=== PATIENT | female | born 1950 | race Caucasian/White ===

== ENCOUNTER → 2017-07-21 | Outpatient (CLI) | payer BC ==
--- NOTE | 2017-07-21 15:37 | XR ---
EXAMINATION TYPE: XR foot complete LT DATE OF EXAM: 07/21/2017 COMPARISON: NONE HISTORY: Left foot pain, fall down stairs TECHNIQUE: 3 views left foot FINDINGS: No acute fractures are evident. There is joint space narrowing. Plantar and Achilles tendon calcaneal heel spurs are present. Follow-up study can be performed 7-10 days from acute trauma for continued pain. IMPRESSION: 1. No acute osseous abnormality.
== END ==
LOC: RADXRMAIN 15:15
PROVIDERS: ATTEND Family Medicine
DX: M79.672 Pain in left foot (principal)

== ENCOUNTER → 2018-11-02 | Outpatient (CLI) | payer MEDICARE ==
--- NOTE | 2018-11-02 18:56 | BD ---
EXAMINATION TYPE: Axial Bone Density DATE OF EXAM: 11/02/2018 COMPARISON: NONE CLINICAL HISTORY: 68-year-old female post menopausal screening without HRT Height: 5'3 Weight: 185 FRAX RISK QUESTIONS: Glucocorticoids (More than 3mos): y (Ex: prednisone, prednisolone, methylprednisolone, dexamethasone, and hydrocortisone). Secondary Osteoporosis: RISK FACTORS HISTORY OF: Active: n Postmenopausal woman: y MEDICATIONS: Prednisone or other steroids: y How Lon years Additional Medications: blood pressure Additional History: EXAM MEASUREMENTS: Bone mineral densitometry was performed using the [employer] System. Bone mineral density as measured about the Lumbar spine is: ----- L1-L4(G/cm2): 1.177 T Score Values are as follows: ----- L2: -0.4 ----- L3: 0.5 ----- L4: 0.2 ----- L1-L4: 0.0 Bone mineral density about the R hip (g/cm2): 1.066 Bone mineral density about the L hip (g/cm2): 1.033 T Score values are as follows: -----R Neck: 0.2 -----L Neck: 0.0 -----R Total: 0.9 -----L Total: 0.2 IMPRESSION: Normal (Values between +1 and -1 indicate normal bone mass). Consider repeating this study in 5 year s or sooner if there is some new clinical indication. NOTE: T-SCORE=SD OF THE YOUNG ADULT MEAN.
== END | disposition home or self-care (01) ==
LOC: RADBDWWP 06:57
PROVIDERS: ATTEND Internal Medicine
DX: Z13.820 Encounter for screening for osteoporosis (principal); Z78.0 Asymptomatic menopausal state
CPT/HCPCS: 77080